=== PATIENT | male | born 1950 | race Caucasian/White ===

== ENCOUNTER → 2017-07-14 | Outpatient (CLI) | payer MEDICARE, BC ==
[2017-07-14 09:35] LABS: APPEARANCE,URINE SLIGHTLY-CLOUDY; BILIRUBIN,URINE NEGATIVE (NEGATIVE); GLUCOSE, URINE NEGATIVE (NEGATIVE); KETONES,URINE NEGATIVE (NEGATIVE); LEUKOCYTE ESTERASE,URINE NEGATIVE (NEGATIVE); NITRITE,URINE NEGATIVE (NEGATIVE); PROTEIN,URINE NEGATIVE (NEGATIVE); URINE SPECIFIC GRAVITY 1.021; UROBILINOGEN,URINE NEGATIVE mg/dL (<2.0)
[2017-07-14 09:39] LABS: ABSOLUTE EOSINOPHILS # (AUTO) 0.1 10^3/uL (0.0-0.6); ABSOLUTE LYMPHOCYTES (AUTO) 1.9 10^3/uL (0.5-4.7); ABSOLUTE MONOCYTES (AUTO) 0.4 10^3/uL (0.1-1.4); ABSOLUTE NEUT (AUTO) 3.2 10^3/uL (1.7-8.2); BASOPHILS % (AUTO) 0.3 % (0-2); EOSINOPHILS % (AUTO) 1.5 % (0-6); HEMATOCRIT 40.2 % (37.9-51.0); HEMOGLOBIN 14.2 g/dL (13.5-17.0); HGB HCT DIFFERENCE 2.4; LYMPHOCYTES % (AUTO) 33.5 % (13-45); MEAN CORPUSCULAR HEMOGLOBIN 30.1 pg (27.0-33.4); MEAN CORPUSCULAR HGB CONC 35.2 g/dL (32.0-36.0); MEAN CORPUSCULAR VOLUME 85 fl (80-97); MONOCYTES % (AUTO) 7.7 % (3-13); RED CELL DISTRIBUTION WIDTH 13.6 % (11.5-14.0); WHITE BLOOD COUNT 5.6 10^3/uL (4.0-10.5)
[2017-07-14 09:56] LABS: ANION GAP 11 (5-19); BLOOD UREA NITROGEN 12 mg/dL (7-20); CALCIUM 9.8 mg/dL (8.4-10.2); CARBON DIOXIDE 25 mmol/L (22-30); CHLORIDE 106 mmol/L (98-107); CREATININE RESULT 0.91 mg/dL (0.52-1.25); GLUCOSE 133 mg/dL (75-110); SODIUM 141.9 mmol/L (137-145)
--- NOTE | 2017-07-14 11:23 | RADIOLOGY REPORT (SQ) ---
EXAM DESCRIPTION: CHEST PA/LATERAL COMPLETED DATE/TIME: 07/14/2017 9:27 am REASON FOR STUDY: PRE OP COMPARISON: None. EXAM PARAMETERS: NUMBER OF VIEWS: two views TECHNIQUE: Digital Frontal and Lateral radiographic views of the chest acquired. RADIATION DOSE: NA LIMITATIONS: none FINDINGS: LUNGS AND PLEURA: No opacities, masses or pneumothorax. No pleural effusion. MEDIASTINUM AND HILAR STRUCTURES: No masses or contour abnormalities. HEART AND VASCULAR STRUCTURES: Heart normal size. No evidence for failure. BONES: No acute findings. HARDWARE: None in the chest. OTHER: No other significant finding. IMPRESSION: NO SIGNIFICANT RADIOGRAPHIC FINDING IN THE CHEST. TECHNICAL DOCUMENTATION: JOB ID: [id number] [employer]- All Rights Reserved
--- NOTE | 2017-07-14 13:06 | EKG REPORT ---
SEVERITY:- BORDERLINE ECG - SINUS RHYTHM LEFT AXIS DEVIATION BORDERLINE R WAVE PROGRESSION, ANTERIOR LEADS BORDERLINE T ABNORMALITIES, DIFFUSE LEADS : Confirmed by: Markos Gasca MD 14-Jul-2017 13:06:05
== END ==
LOC: OD 08:20
PROVIDERS: ATTEND Orthopaedic Surgery
DX: Z01.818 Encounter for other preprocedural examination (principal); E11.9 Type 2 diabetes mellitus without complications
CPT/HCPCS: 36415; 71020; 80048; 81001; 83036; 85025; 93005; 93010

== ENCOUNTER 2017-08-11 05:27 | Inpatient (IN) | payer MEDICARE, BC ==
[~2017-08-11 05:27] MED LIST: BUPIVACAINE INJ/PF LIPOSOME/PF 266 MG/20 ML SDV IJ PRN; IBUPROFEN 800 MG/NS 250 ML IV PRN; LACTATED RINGERS 1000 ML IV PRN; LANSOPRAZOLE 15 MG TAB.RAP.DR PO PRN; LIDOCAINE 0.5% INJ-PF (5 MG/ML) 50 ML SDV SUBCUT PRN; OXYCODONE HCL SR 10 MG TABLET PO PRN; VANCOMYCIN HCL 1,000 MG in DEXTROSE 5%-WATER 250 ML IV PRN
[2017-08-11] MEDS ORDERED: CEFAZOLIN INJ 1 GM VIAL ONE (06:02)
[2017-08-11] MEDS ORDERED: THROMBIN (BOVINE) 5000 UNIT EPITAXIS KIT ONE (06:53)
[2017-08-11] MEDS ORDERED: THROMBIN (BOVINE) TOPICAL 20000 UNIT VIAL ONE (06:53)
[2017-08-11] MEDS ORDERED: BUPIVACAINE INJ/PF LIPOSOME/PF 266 MG/20 ML SDV ONE (06:53)
[2017-08-11] MEDS ORDERED: DEXAMETHASONE SOD PHOSPHATE INJ 4 MG/1 ML VIAL ONE (07:03)
[2017-08-11] MEDS ORDERED: ONDANSETRON HCL INJ/PF 4 MG/2 ML SDV ONE (07:03)
[2017-08-11] MEDS ORDERED: MIDAZOLAM 2 MG/2 ML INJ ONE (07:03)
[2017-08-11] MEDS ORDERED: FENTANYL CITRATE INJ/PF 100 MCG/2 ML AMPUL ONE (07:03)
[2017-08-11] MEDS ORDERED: PROPOFOL INJ 200 MG/20 ML VIAL IV ONE (07:04)
[2017-08-11] MEDS ORDERED: MORPHINE SULFATE 10 MG/ML INJ ONE (07:04)
[2017-08-11] MEDS ORDERED: TRANEXAMIC ACID INJ/PF 1,000 MG/10 ML SDV IV ONE ×2 (07:05→10:30)
[2017-08-11] MEDS ORDERED: PROMETHAZINE HCL INJ 25 MG/1 ML VIAL IV PRN ×2 (08:24)
[2017-08-11] MEDS ORDERED: MEPERIDINE HCL/PF INJ 25 MG/1 ML DISP.SYRIN IV PRN (08:24)
[2017-08-11] MEDS ORDERED: FENTANYL CITRATE INJ/PF 100 MCG/2 ML AMPUL IV PRN ×3 (08:24)
[2017-08-11] MEDS ORDERED: MORPHINE SULFATE 10 MG/ML INJ IV PRN ×3 (08:24→08:38)
[2017-08-11] MEDS ORDERED: DIPHENHYDRAMINE HCL 50 MG/ML VIAL IV PRN ×2 (08:24→08:38)
[2017-08-11] MEDS ORDERED: MAG HYDROX/AL HYDROX/SIMETH SUSP 30 ML UDCUP PO PRN (08:38)
[2017-08-11] MEDS ORDERED: MORPHINE SULFATE 10 MG/ML INJ IM PRN (08:38)
[2017-08-11] MEDS ORDERED: ONDANSETRON 4 MG TAB.RAPDIS PO PRN (08:38)
[2017-08-11] MEDS ORDERED: RINGERS SOLUTION,LACTATED 1,000 ML IV PRN (08:38)
[2017-08-11] MEDS ORDERED: ACETAMINOPHEN 325 MG TABLET PO PRN (08:38)
[2017-08-11] MEDS ORDERED: SILDENAFIL CITRATE PO PRN (08:38)
[2017-08-11] MEDS ORDERED: ZOLPIDEM TARTRATE 5 MG TABLET PO PRN (08:38)
[2017-08-11] MEDS ORDERED: ONDANSETRON HCL INJ/PF 4 MG/2 ML SDV IV PRN (08:38)
--- NOTE | 2017-08-11 08:38 | Operative Report ---
Operative Report DATE OF SURGERY: 08/11/17 PREOPERATIVE DIAGNOSIS: Right knee arthritis OPERATION: Right knee arthroplasty SURGEON: MADELYN HALE 1ST TACKER OFF: LULU CIFUENTES ANESTHESIA: Spinal TISSUE REMOVED OR ALTERED: Bone to pathology ESTIMATED BLOOD LOSS: 100 PROCEDURE: Implants used: Femur: [place] triathlon #7 CR femur Tibia: 6 tibia Tibial liner: 9 mm CS insert Patella: 38 mm oval patella Procedure with the patient supine on the operating table the right the limb is prepped and draped in a sterile fashion. The limb was elevated for exsanguination and the tourniquet inflated to 280 torr. A standard midline median parapatellar approach the knee is taken. Access is gained to the femoral canal through the intercondylar notch. Intramedullary alignment instrumentation used to resect 10 mm of distal femur in 5 of valgus. Sizing guide indicated a size 7 femur. Appropriate cutting jig is then used to fashion anterior posterior and chamfer cuts. A trial reduction femurs performed and this is judged to be adequate. Attention was next turned to the tibia. Using an extra medullary alignment system 9 millimeters was resected off the lateral tibial plateau. This is sized to a size 6 tibia. A trial reduction was now performed with a 7 femur and a 6 tibia using a 9 millimeters spacer. It is full extension and central patellofemoral tracking. The articular surface the patella was next resected using an oscillating saw. All trial implants were removed. Polymethylmethacrylate is mixed and used to cement the above implants in place. On adequate curing the cement excess cement was removed the tourniquet was deflated hemostasis obtained the wound is then closed in layers using interrupted Vicryl followed by wicho. A sterile compressive dressing was applied and the patient returned to recovery room in satisfactory condition.
[2017-08-11] MEDS ORDERED: (PENDING PHARMACY ID) (Omeprazole [Omeprazole] 1 CAP) PO SCH (10:00)
[2017-08-11] MEDS ORDERED: TESTOSTERONE TOP SCH (10:00)
[2017-08-11] MEDS ORDERED: LEVOTHYROXINE SODIUM PO SCH (10:00)
[2017-08-11] MEDS ORDERED: SITAGLIPTIN PHOSPHATE PO SCH (10:00)
[2017-08-11] MEDS ORDERED: DEXTROSE 40% GEL 15 GM TUBE PO PRN (10:05)
[2017-08-11] MEDS ORDERED: GLUCAGON,HUMAN RECOMB 1 MG INJ IM PRN (10:05)
[2017-08-11] MEDS ORDERED: DEXTROSE 50%-WATER SYRINGE 12.5 GM/25 ML DOSE IV PRN (10:05)
[2017-08-11] MEDS ORDERED: DEXTROSE 40% GEL 15 GM TUBE X 2 PO PRN (10:05)
[2017-08-11] MEDS ORDERED: INSULIN LISPRO 100 UNIT/ML 3 ML VIAL SUBCUT PRN (10:05)
[2017-08-11] MEDS ORDERED: DEXTROSE 50%-WATER SYRINGE 25 GM/50 ML DOSE IV PRN (10:05)
--- NOTE | 2017-08-11 10:22 | RADIOLOGY REPORT (SQ) ---
EXAM DESCRIPTION: KNEE RIGHT 2 VIEWS COMPLETED DATE/TIME: 08/11/2017 9:27 am REASON FOR STUDY: Post OP -Long Cassette in PACU M17.11 UNILATERAL PRIMARY OSTEOARTHRITIS, RIGHT KN EE COMPARISON: None. NUMBER OF VIEWS: Four views. TECHNIQUE: AP, lateral, and both oblique radiographic images acquired of the right knee. LIMITATIONS: None. FINDINGS: Postoperative images of the right knee show a knee arthroplasty good position. IMPRESSION: Right knee arthroplasty. TECHNICAL DOCUMENTATION: JOB ID: [id number] [employer]- All Rights Reserved
[2017-08-11] MEDS: MORPHINE SULFATE 10 MG/ML INJ IV PRN ×2 (12:59→14:49)
[2017-08-11] MEDS: IBUPROFEN 800 MG in NORMAL SALINE 250 ML IV SCH ×2 (14:50→21:35)
[2017-08-11] MEDS: OXYCODONE HCL SR 10 MG TABLET PO SCH (17:20)
[2017-08-11] MEDS: SENNOSIDES/DOCUSATE 8.6-50 MG 1 EACH TABLET PO SCH (17:21)
[2017-08-11] MEDS ORDERED: INFLUENZA ADLT QUAD (36MOS+) 2017-18 VAC 0.5 ML SYR IM PRN (17:29)
[2017-08-11] MEDS ORDERED: VANCOMYCIN HCL 1,000 MG in DEXTROSE 5%-WATER 250 ML IV ONE (21:00)
[2017-08-11] MEDS: EZETIMIBE 10 MG TABLET PO SCH (21:38)
[2017-08-11] MEDS: RIVAROXABAN 10 MG TABLET PO SCH (21:38)
[2017-08-12] MEDS: OXYCODONE HCL IR 5 MG TABLET PO PRN ×2 (01:16→11:45)
[2017-08-12] MEDS: IBUPROFEN 800 MG in NORMAL SALINE 250 ML IV SCH ×3 (05:36→21:44)
[2017-08-12] MEDS: OXYCODONE HCL SR 10 MG TABLET PO SCH ×2 (05:36→17:15)
[2017-08-12] MEDS: LANSOPRAZOLE 30 MG TAB.RAP.DR PO SCH (05:37)
[2017-08-12] MEDS: LEVOTHYROXINE SODIUM 0.15 MG TABLET PO SCH (05:37)
[2017-08-12 05:57] LABS: HEMATOCRIT 33.2 % (37.9-51.0); HGB HCT DIFFERENCE 2.8; MEAN CORPUSCULAR HEMOGLOBIN 30.4 pg (27.0-33.4); MEAN CORPUSCULAR HGB CONC 36.1 g/dL (32.0-36.0); MEAN CORPUSCULAR VOLUME 84 fl (80-97); RED BLOOD COUNT 3.94 10^6/uL (4.35-5.55); RED CELL DISTRIBUTION WIDTH 13.2 % (11.5-14.0); WHITE BLOOD COUNT 8.4 10^3/uL (4.0-10.5)
[2017-08-12 06:02] LABS: ANION GAP 10 (5-19); BLOOD UREA NITROGEN 15 mg/dL (7-20); CALCIUM 9.1 mg/dL (8.4-10.2); CARBON DIOXIDE 29 mmol/L (22-30); CHLORIDE 99 mmol/L (98-107); CREATININE RESULT 0.91 mg/dL (0.52-1.25); GLUCOSE 182 mg/dL (75-110); POTASSIUM 4.3 mmol/L (3.6-5.0); SODIUM 137.7 mmol/L (137-145)
--- NOTE | 2017-08-12 06:56 | PDOC PROGRESS REPORT ---
Subjective Progress Note for:: 08/12/17 Subjective:: "I feel fantastic" Physical Exam Vital Signs: Temp Pulse Resp BP Pulse Ox 36.5 C 96 16 132/75 H 97 08/12/17 04:00 08/12/17 04:00 08/12/17 04:00 08/12/17 04:00 08/12/17 04:00 Intake & Output 08/10/17 08/11/17 08/12/17 06:59 06:59 06:59 Intake Total 0 7120 Output Total 4550 Balance 0 2570 General appearance: PRESENT: no acute distress Head exam: PRESENT: normocephalic Eye exam: PRESENT: EOMI Respiratory exam: PRESENT: unlabored Cardiovascular exam: PRESENT: RRR Vascular exam: PRESENT: normal capillary refill GI/Abdominal exam: PRESENT: soft Rectal exam: PRESENT: deferred Extremities exam: PRESENT: other - Patient sitting up on the side of the bed reading the newspaper. Right lower extremity dressing is clean dry and intact. Distal neurovascular examination is intact. Neurological exam: PRESENT: alert, awake, oriented to person, oriented to place , oriented to time, oriented to situation. ABSENT: motor sensory deficit Psychiatric exam: PRESENT: appropriate affect, normal mood. ABSENT: homicidal ideation, suicidal ideation Skin exam: PRESENT: dry, intact, warm. ABSENT: cyanosis, rash Results Laboratory Results: 08/12/17 05:12 08/12/17 05:12 08/12/17 08/12/17 05:12 05:12 WBC 8.4 RBC 3.94 L Hgb 12.0 L Hct 33.2 L MCV 84 MCH 30.4 MCHC 36.1 H RDW 13.2 Plt Count 163 Sodium 137.7 Potassium 4.3 Chloride 99 Carbon Dioxide 29 Anion Gap 10 BUN 15 Creatinine 0.91 Est GFR ( Amer) > 60 Est GFR (Non-Af Amer) > 60 Glucose 182 H Calcium 9.1 Impressions: Knee X-Ray 08/11/17 08:39 IMPRESSION: Right knee arthroplasty. Status: Imported from PACS Assessment & Plan - Diagnosis (1) Arthritis of right knee Is this a current diagnosis for this admission?: Yes Plan: 67-year-old white male postop day 1 from right knee arthroplasty. Patient ambulated 60 feet with physical therapy yesterday. (2) Diabetes Qualifiers: Diabetes mellitus type: type 2 Is this a current diagnosis for this admission?: Yes Plan: Blood glucose is maintained between 220-253 - Time Time Spent with patient: 15-24 minutes Anticipated discharge: Home with Homehealth Within: within 24 hours
[2017-08-12] MEDS: GLIPIZIDE 5 MG TABLET PO SCH (07:44)
[2017-08-12] MEDS: SENNOSIDES/DOCUSATE 8.6-50 MG 1 EACH TABLET PO SCH ×2 (09:09→17:15)
[2017-08-12] MEDS: PRENATAL VITAMIN W-O CA NO5/FE FUMARATE/FA CAPSULE PO SCH (09:09)
[2017-08-12] MEDS: SITAGLIPTIN PHOSPHATE 50 MG TABLET PO SCH (09:10)
[2017-08-12] MEDS: EZETIMIBE 10 MG TABLET PO SCH (21:43)
[2017-08-12] MEDS: RIVAROXABAN 10 MG TABLET PO SCH (21:43)
[2017-08-13 05:02] LABS: HEMATOCRIT 32.6 % (37.9-51.0); HEMOGLOBIN 11.7 g/dL (13.5-17.0); HGB HCT DIFFERENCE 2.5; MEAN CORPUSCULAR HEMOGLOBIN 30.2 pg (27.0-33.4); MEAN CORPUSCULAR HGB CONC 35.9 g/dL (32.0-36.0); MEAN CORPUSCULAR VOLUME 84 fl (80-97); RED BLOOD COUNT 3.87 10^6/uL (4.35-5.55); RED CELL DISTRIBUTION WIDTH 13.3 % (11.5-14.0); WHITE BLOOD COUNT 7.9 10^3/uL (4.0-10.5)
[2017-08-13] MEDS: LANSOPRAZOLE 30 MG TAB.RAP.DR PO SCH (05:43)
[2017-08-13] MEDS: LEVOTHYROXINE SODIUM 0.15 MG TABLET PO SCH (05:43)
[2017-08-13] MEDS: IBUPROFEN 800 MG in NORMAL SALINE 250 ML IV SCH (05:43)
[2017-08-13] MEDS: OXYCODONE HCL SR 10 MG TABLET PO SCH (05:43)
[2017-08-13] MEDS: GLIPIZIDE 5 MG TABLET PO SCH (08:09)
[2017-08-13 08:35] VITALS: BP 127/69
--- NOTE | 2017-08-13 09:25 | PDOC DISCHARGE SUMMARY ---
General - Admit/Disc Date/PCP Admission Date/Primary Care Provider: 08/11/17 05:27 KALA ARGUELLO MD Discharge Date: 08/13/17 - Discharge Diagnosis (1) Arthritis of right knee Is this a current diagnosis for this admission?: Yes - Additional Information Resuscitation Status: Full Code Discharge Diet: As Tolerated, Regular Discharge Activity: No Driving, No tub bath Home Medications: Levothyroxine Sodium 300 mcg PO DAILY 07/28/17 Omeprazole 40 mg PO DAILY 07/28/17 Sildenafil Citrate [Viagra] 50 mg PO PRN PRN 07/28/17 Sitagliptin Phosphate [Januvia] 100 mg PO DAILY 07/28/17 Testosterone 1 applic TOP DAILY 07/28/17 Ezetimibe [Zetia 10 mg Tablet] 10 mg PO DAILY 08/11/17 Fenofibrate Nanocrystallized [Fenofibrate] 145 mg PO DAILY 08/11/17 Glipizide [Glipizide Xl] 5 mg PO DAILY 08/11/17 History of Present Illness History of Present Illness: RIMMA FISCHER is a 67 year old male with right knee arthritis admitted for elective total right knee arthroplasty. Hospital Course Hospital Course: 67-year-old white male who was admitted through the OR and underwent elective total right knee arthroplasty. He was returned to PACU in satisfactory condition. He was taken up to the surgical floor and seen by physical therapy to work towards weightbearing as tolerated. He made great progress with physical therapy ambulating up to 300 feet independently. He will be discharged to his home today with home health nursing, home physical therapy, wheeled walker and bedside commode. Physical Exam Vital Signs: Temp Pulse Resp BP Pulse Ox 37.4 C 108 H 20 127/69 H 98 08/13/17 08:00 08/13/17 08:00 08/13/17 08:00 08/13/17 08:00 08/13/17 08:00 Intake & Output 08/12/17 08/13/17 08/14/17 06:59 06:59 06:59 Intake Total 7120 2427 Output Total 7820 1750 Balance 2570 677 General appearance: PRESENT: no acute distress, well-developed, well-nourished Head exam: PRESENT: atraumatic, normocephalic Pulses: PRESENT: normal dorsalis pedis pul, +2 pedal pulses bilateral Additional comments: Patient's right lower extremity has postop compression dressing in place. This morning this dressing is clean dry and intact. It was removed and OpSite dressing beneath was saturated with geovanna blood. OpSite dressing was changed and replaced this morning the distal end was then again saturated 10 minutes later and was again changed and replaced. He exhibits appropriate range of passive and active motion for this stage in the healing process his sensory motor functions are intact and his distal neurovascular exam is intact. Musculoskeletal exam: PRESENT: ambulatory Additional comments: Patient has made great progress with physical therapy ambulating 300 feet independently. He will continue to work with home physical therapy to improve strength and range of motion of the right lower extremity. Neurological exam: PRESENT: alert, awake, oriented to person, oriented to place , oriented to time, oriented to situation, CN II-XII grossly intact. ABSENT: motor sensory deficit Psychiatric exam: PRESENT: appropriate affect, normal mood. ABSENT: homicidal ideation, suicidal ideation Skin exam: PRESENT: dry, intact, warm. ABSENT: cyanosis, rash Results Laboratory Results: 08/13/17 04:46 08/12/17 05:12 08/13/17 04:46 WBC 7.9 RBC 3.87 L Hgb 11.7 L Hct 32.6 L MCV 84 MCH 30.2 MCHC 35.9 RDW 13.3 Plt Count 163 Impressions: Knee X-Ray 08/11/17 08:39 IMPRESSION: Right knee arthroplasty. Plan Discharge Plan: 67-year-old white male status post total right knee arthroplasty who will be discharged home today with home health nursing, home physical therapy, wheeled walker and bedside commode. The visiting nurse service will change his OpSite dressing as needed when saturated with blood. He will follow-up with Dr. Lopez 2 weeks postoperatively at [facility] for surgery for staple removal and reevaluation. Time Spent: Less than 30 Minutes
[2017-08-13] MEDS: SITAGLIPTIN PHOSPHATE 50 MG TABLET PO SCH (09:36)
[2017-08-13] MEDS: SENNOSIDES/DOCUSATE 8.6-50 MG 1 EACH TABLET PO SCH (09:37)
[2017-08-13] MEDS: PRENATAL VITAMIN W-O CA NO5/FE FUMARATE/FA CAPSULE PO SCH (09:37)
== END 2017-08-13 11:54 | disposition home health service (06) | DRG 470 ==
LOC: INOR 05:27 → 4S 10:13
PROVIDERS: ADMIT Orthopaedic Surgery; ATTEND Orthopaedic Surgery
PROC: 0SRC0J9 Replacement of Right Knee Joint with Synthetic Substitute, Cemented, Open Approach (ICD-10-PCS; principal; 2017-08-11 07:30)
PROC: 3E0234Z Introduction of Serum, Toxoid and Vaccine into Muscle, Percutaneous Approach (ICD-10-PCS; 2017-08-13)
DX: M17.11 Unilateral primary osteoarthritis, right knee (principal); E78.5 Hyperlipidemia, unspecified; E11.9 Type 2 diabetes mellitus without complications; G47.30 Sleep apnea, unspecified; Z79.899 Other long term (current) drug therapy; Z79.84 Long term (current) use of oral hypoglycemic drugs; Z23 Encounter for immunization
CPT/HCPCS: 01402; 36415; 80048; 82962; 85027; 88304; 88311; 90686; 94799; C2625; C9290; G8978-GP; G8979-GP; G8987-GO; G8988-GO; J0690; J1100; J1741; J2250; J2270; J2405; J2704; J3010; J3370; J3490; J7050; J7060

== ENCOUNTER 2017-10-13 08:16 | Day surgery (SDC) | payer MEDICARE, BC ==
[2017-10-09 10:51] LABS: ABSOLUTE BASOPHILS # (AUTO) 0.1 10^3/uL (0.0-0.2); ABSOLUTE MONOCYTES (AUTO) 0.8 10^3/uL (0.1-1.4); ABSOLUTE NEUT (AUTO) 4.7 10^3/uL (1.7-8.2); BASOPHILS % (AUTO) 0.6 % (0-2); EOSINOPHILS % (AUTO) 0.6 % (0-6); HEMATOCRIT 40.2 % (37.9-51.0); HEMOGLOBIN 13.6 g/dL (13.5-17.0); HGB HCT DIFFERENCE 0.6; LYMPHOCYTES % (AUTO) 34.9 % (13-45); MEAN CORPUSCULAR HEMOGLOBIN 28.3 pg (27.0-33.4); MEAN CORPUSCULAR HGB CONC 33.8 g/dL (32.0-36.0); MEAN CORPUSCULAR VOLUME 84 fl (80-97); MONOCYTES % (AUTO) 9.6 % (3-13); RED BLOOD COUNT 4.79 10^6/uL (4.35-5.55); RED CELL DISTRIBUTION WIDTH 14.4 % (11.5-14.0); SEGMENTED NEUTROPHILS % (AUTO) 54.3 % (42-78); WHITE BLOOD COUNT 8.7 10^3/uL (4.0-10.5)
[2017-10-09 11:02] LABS: APPEARANCE,URINE CLEAR; BILIRUBIN,URINE NEGATIVE (NEGATIVE); GLUCOSE, URINE 50 mg/dL (NEGATIVE); KETONES,URINE NEGATIVE (NEGATIVE); LEUKOCYTE ESTERASE,URINE NEGATIVE (NEGATIVE); NITRITE,URINE NEGATIVE (NEGATIVE); PROTEIN,URINE NEGATIVE (NEGATIVE); URINE SPECIFIC GRAVITY 1.021; UROBILINOGEN,URINE NEGATIVE mg/dL (<2.0)
[2017-10-09 11:19] LABS: ANION GAP 10 (5-19); BLOOD UREA NITROGEN 18 mg/dL (7-20); CALCIUM 9.9 mg/dL (8.4-10.2); CARBON DIOXIDE 30 mmol/L (22-30); CHLORIDE 103 mmol/L (98-107); CREATININE RESULT 1.05 mg/dL (0.52-1.25); GLUCOSE 116 mg/dL (75-110); POTASSIUM 4.2 mmol/L (3.6-5.0); SODIUM 143.3 mmol/L (137-145)
--- NOTE | 2017-10-09 12:59 | EKG REPORT ---
SEVERITY:- OTHERWISE NORMAL ECG - SINUS RHYTHM BORDERLINE LEFT AXIS DEVIATION : Confirmed by: Melia Hui 09-Oct-2017 12:58:42
[~2017-10-13 08:16] MED LIST changes: -BUPIVACAINE INJ/PF LIPOSOME/PF 266 MG/20 ML SDV IJ PRN; +FENTANYL CITRATE INJ/PF 100 MCG/2 ML AMPUL ONE; -IBUPROFEN 800 MG/NS 250 ML IV PRN; -LANSOPRAZOLE 15 MG TAB.RAP.DR PO PRN; +LIDOCAINE 2% INJ-PF (20 MG/ML) 10 ML AMPUL ONE; +MIDAZOLAM 2 MG/2 ML INJ ONE; +ONDANSETRON HCL INJ/PF 4 MG/2 ML SDV ONE; -OXYCODONE HCL SR 10 MG TABLET PO PRN; +PROPOFOL INJ 200 MG/20 ML VIAL IV ONE; -VANCOMYCIN HCL 1,000 MG in DEXTROSE 5%-WATER 250 ML IV PRN
--- NOTE | 2017-10-13 08:56 | Operative Report ---
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 Following manipulation the patient lacks approximately 2-3 of full extension and can further flex to at least 135. The patient was then returned to the PACU in satisfactory condition.
[2017-10-13] MEDS ORDERED: PROMETHAZINE HCL INJ 25 MG/1 ML VIAL IV PRN (09:11)
[2017-10-13] MEDS ORDERED: FENTANYL CITRATE INJ/PF 100 MCG/2 ML AMPUL IV PRN ×3 (09:11)
[2017-10-13] MEDS ORDERED: DIPHENHYDRAMINE HCL 50 MG/ML VIAL IV PRN (09:11)
[2017-10-13] MEDS ORDERED: MORPHINE SULFATE 10 MG/ML INJ IV PRN (09:11)
[2017-10-13] MEDS ORDERED: ONDANSETRON 4 MG TAB.RAPDIS SL PRN (09:25)
[2017-10-13] MEDS ORDERED: OXYCODONE HCL IR 5 MG TABLET PO PRN (09:25)
[2017-10-13 16:13] VITALS: BP 142/92
== END 2017-10-13 10:40 | disposition home or self-care (01) ==
LOC: OROUT 08:16
PROVIDERS: ATTEND Orthopaedic Surgery
PROC: 0SSCXZZ Reposition Right Knee Joint, External Approach (ICD-10-PCS; principal; 2017-10-13 08:00)
DX: Z96.651 Presence of right artificial knee joint (principal); E03.9 Hypothyroidism, unspecified; K21.9 Gastro-esophageal reflux disease without esophagitis; E78.5 Hyperlipidemia, unspecified; M15.9 Polyosteoarthritis, unspecified; Z79.01 Long term (current) use of anticoagulants; Z79.899 Other long term (current) drug therapy; Z79.84 Long term (current) use of oral hypoglycemic drugs; Z79.1 Long term (current) use of non-steroidal anti-inflammatories (NSAID); Z87.891 Personal history of nicotine dependence; G47.33 Obstructive sleep apnea (adult) (pediatric); E11.9 Type 2 diabetes mellitus without complications; D64.9 Anemia, unspecified
CPT/HCPCS: 93005; 36415; 82962; 85025; 80048; 81001; 83036; 93010; 97140; J2250; J3010; J2405; J2704; J3490; 1380